=== PATIENT | male | born 1975 | race Caucasian/White ===

== ENCOUNTER 2025-10-07 06:23 | Emergency (ER) | payer BC, OTHER ==
--- NOTE | 2025-10-07 06:35 | ED.PDOC ---
CPR-HPI HPI Comments This is a 50 year old male FABRIZIO presenting to the ED with chief complaint of cardiac arrest. EMS reports patient was witnessed by in bed to be having agonal respirations, eventually becoming apneic and losing pulse prior to their arrival. EMS relays that the patient was moved to the floor by family and upon their arrival, patient was asystole. EMS states patient was given Calcium, Sodium bicarbonate, and Narcan due to history of opiate withdrawals with improvement of rhythm to PEA at 30bpm and patient having agonal respirations. EMS notes patient was en route to the ED when he had changed to asystole, being given a round of Epinephrine prior to his arrival in the ED. Patient was down for a total of 1 hour and 15 minutes before arriving in the ED. Patient has history of A-Fib, CHF, Pulmonary HTN, and chronic body pain on opiates. Time Seen by MD: 06:31 Reviewed Notes: Nurses Notes, Payroll Tax Analyst Notes, Medications, Allergies Information Source: Emergency Med Personnel Mode of Arrival: Ambulatory Timing: Hours Duration: Down time prior EMS: (20 minutes), Total time prior hopital: (1 hour 15 minutes) Onset: At rest, Witnessed Available Hx: Prior Cardiac Disease Inital rhythm: Asystole Treatment: CPR, IV, Epinephrine Response: Transient return of pulse Past Medical History PAST MEDICAL HISTORY: AFIB, CHF, HTN Past Medical History (Other): Chronic body pain Surgical History: Unknown Family History Family History: Reviewed,noncontributory to illness Social History Smoker: Unknown Alcohol: Unknown Drugs: Unknown Lives In: Home Constitutional: denies: chills, diaphoresis, fatigue, fever, malaise, sweats, weakness, others EENTM: denies: blurred vision, double vision, ear bleeding, ear discharge, ear drainage, ear pain, ear ringing, eye pain, eye redness, hearing loss, mouth pain, mouth swelling, nasal discharge, nose bleeding, nose congestion, nose tor n, photophobia, tearing, throat pain, throat swelling, voice changes, others Respiratory: denies: cough, hemoptysis, orthopnea, SOB at rest, shortness of breath, SOB with excertion, stridor, wheezing, others Cardiovascular: denies: chest pain, dizzy spells, diaphoresis, Dyspnea on exertion, edema, irregular heart beat, left arm pain, lightheadedness, palpitations, PND, syncope, others Gastrointestinal: denies: abdomen distended, abdominal pain, blood streaked bowels, constipated, diarrhea, dysphagia, difficulty swallowing, hematemesis, melena, nausea, poor appetite, poor fluid intake, rectal bleeding, rectal pain, vomiting, others Genitourinary: denies: burning, dysuria, flank pain, frequency, hematuria, incontinence, penile discharge, penile sore, pain, testicle pain, testicle swelling, urgency, others Neurological: denies: dizziness, fainting, headache, left sided numbness, left sided weakness, numbness, paresthesia, pre-existing deficit, right sided numbness, right sided weakness, seizure, speech problems, tingling, tremors, weakness, others Musculoskeletal: denies: back pain, gout, joint pain, joint swelling, muscle pain, muscle stiffness, neck pain, others Integumetry: denies: bruises, change in color, change in hair/nails, dryness, laceration, lesions, lumps, rash, wounds, others Allergic/Immunocompromised: denies: Difficulty Healing, Frequent Infections, Hives, Itching, others Hematologic/Lymphatic: denies: anemia, blood clots, easy bleeding, easy bruising, swollen glands, others Endocrine: denies: excessive hunger, excessive sweating, excessive thirst, excessive urination, flushing, intolerance to cold, intolerance to heat, unexplained weight gain, unexplained weight loss, others Psychiatric: denies: anxiety, bipolar disorder, depression, hopeless, panic disorder, schizophrenia, sleepless, suicidal, others Unable to Obtain due to: Medical Urgency All Other Systems: Reviewed and Negative Physical Exam Exam Comments Patient came by ambulance CPR in progress intubated hyperventilated General Appearance: Obese, Other (Comatose) HEENT: Other (Pupils fixed and dilated) Neck: Full Range of Motion, Normal Inspection Respiratory: Other (Patient apneic and ventilated to the tube) Cardiovascular: Other (Patient a systolic CPR in progress) Breast Exam: Deferred Gastrointestinal: No Organomegaly, Soft, Other (CT) Genitalia: Deferred Pelvic: Deferred Rectal: Deferred Extremities: Normal range of motion Neurologic: Flacid, Other (Comatose) Cerebellar Function: NOT DONE Reflexes: NOT DONE Skin: Dry, Normal Color, Warm Peripheral Pulses: 0 carotid (R), 0 carotid (L), 0 femoral (R), 0 femoral (L), 0 dorsalis pedis (R), 0 dorsalis pedis (L), 0 Radial (R), 0 Radial (L), 0 Brachial (R), 0 Brachial (L) Lymphatic: No Adenopathy Was a procedure done? Was a procedure done?: No Differential Dx CPR Differential Diagnosis: Cardiopulmonary arrest, Cardiac Tamponade, Dysrhythmia, Myocardial Infarction, Pulmonary Embolus, Respiratory Failure X-Ray, Labs, Meds, VS Comment Course in the emergency department patient came in CPR in progress after an hour and health of CPR there was no progress and patient was declared Time of 1ST Reevaluation: 06:25 Reevaluation 1ST: N/A (Patient .) Patient Education/Counseling: Diagnosis, Treatment, Prognosis, Pt Unresponsive Family Education/Counseling: Diagnosis, Treatment, Prognosis, Other (Family aware) Departure 1 Departure Time of Disposition: 06:35 Impression: Primary Impression: Unsuccessful cardiopulmonary resuscitation Disposition: 20 Condition: Other (Patient ) Discharged With: Other (Patient [place] [facility] [place] Critical Care Note Critical Care Time?: No Heart Score Heart Score: Heart Score Response (Comments) Value History Highly Suspicious 2 EKG N/A 0 Age 45-64 1 Risk Factors >3 or Hx ASHD 2 Troponin N/A 0 Total 5 Stability Stability form required: No I personally scribed for NURIS MOLINA MD ([email or web address]) on 10/07/25 at 06:35. Electronically submitted by Raphael Moreno ([email or web address]). NURIS MOLINA MD Oct 07, 2025 06:35
[2025-10-07 06:52] VITALS: BP 0/0; PULSE 0; RESP 0; TEMP 97.4; O2SAT 0
--- NOTE | 2025-10-07 07:01 | RESUS ---
CODE BLUE ASSESSSMENT History of Events History of Events: Pt BIBA with CPR in progress via autopulse. Per EMS, pt's woke up to pt gasping and then went pulseless. Bystander CPR initiated by at approx 0500. IO established to L proximal tibia; pt received Epi x8 rounds, Calcium gluconate 10mL, 1 amp sodium bicarb, and 0.5mg Narcan. Initial rhythm was asystole and upon arrival PEA. Per , pt stated he was unable to sleep prior to going to bed and took Tylenol PM; otherwise, no complaints. Initial Information Date: Oct 07, 2025 Time: 06:21 Location of Arrest: In Field Arrest Witnessed: Yes CPR started initial time: 05:00 CPR started by whom: Bystander (Family) Pre-Hospital Care: ACLS Type of arrest: Cardiac, Respiratory, Adult, Witnessed Spontaneous Respirations: No Pulse Present: No Monitoring: ECG, Pulse Oximetry, Telemetry Crash Cart Opened and Supplies: Yes Airway Ventilation Breathing at Onset: Assisted Oxygen Delivery Method: Ambu-Bag Artificial Ventilation: Bag/Mask Suctioning (Oral/Tracheal): Yes (Heavy bleeding observed) Circulation Circulation #1: Time: 06:21 Pulse Rate (adult): 0 Blood Pressure Systolic: 0 Blood Pressure Diastolic: 0 Temperature (Fahrenheit): 97.4 (F; rectal) Circulation #2: Time: 06:24 Pulse Rate (adult): 0 Blood Pressure Systolic: 0 Blood Pressure Diastolic: 0 Circulation Comment: PEA Circulation #3: Time: 06:25 Pulse Rate (adult): 0 Blood Pressure Systolic: 0 Blood Pressure Diastolic: 0 Circulation Comment: TOD; instructed to stop CPR by Dr Thurman Medications & Response Medications and Responses : Medication Time: 06:22 ADULT Medications Given ADULT: Epinephrine 1 mg Route of Administration: IO Heart Rate: 0 EKG Rhythm: PEA Blood Pressure Systolic: 0 Blood Pressure Diastolic: 0 Respiratory Rate: 0 Nurses Notes Sparks Coma Scale Eye Opening: None (1) Richar Coma Scale Verbal: None (1) Richar Coma Scale Motor: None (1) Glascow Total: 3 Pupil Reaction: Non Reactive Bedside Blood Glucose: 121 Time Code Ended Time Code Ended: 06:25 Post Arrest Status: Outcome of code: Unsuccessful Patient pronounced by: Dr Thurman Time patient pronounced: 06:25 Family notified: Yes Code Team Present: Dr Thurman - SABINO KIMBLE; Jaylen Romero RN - ER Charge; Pattie Mo RN - Clinical Training Specialist; Matt Mo RN; Salvador Madden RN; Gisell Mo RN; Negrito Gore RN; Carin Salter, ERT; Malu Ricci, ERT; Gayatri Mcgee, ERT; Vivek Ricci, RT Pattie Whitfield Oct 07, 2025 07:01
== END 2025-10-07 06:25 ==
LOC: EDBD 06:23 → ER 06:23
DX: I46.9 Cardiac arrest, cause unspecified (principal); I11.0 Hypertensive heart disease with heart failure; I50.9 Heart failure, unspecified; I48.91 Unspecified atrial fibrillation
CPT/HCPCS: 82947; 92950